=== PATIENT | male | born 1955 | race Caucasian/White ===

== ENCOUNTER → 2016-10-25 | Outpatient (CLI) | payer OTHER ==
[~2016-10-25] MED LIST: ALTACE10 MG PO; CARDURA 2MG TAB2 MG PO; CRESTOR20 MG PO; ECOTRIN81 MG PO; EFFER-K 10 MEQ10 MEQ PO; GLUCOPHAGE1000 MG PO; HYDROCHLOROTHIA25 MG PO; LORTAB 5-325 M1 EACH PO; NEXIUM40 MG PO; NORVASC 5 MG TAB5 MG PO; PLAVIX 75 MG TA75 MG PO; PROAIR HFA8.5 GM INH; TOPROL XL 50 MG50 MG PO; VISTARIL25 MG PO; ZOLOFT50 MG PO
[2016-10-25 13:03] LABS: HEMOGLOBIN 14.1 gm/dl (14.0-17.5); RED BLOOD COUNT 4.39 M/UL (4.20-5.50); WHITE BLOOD COUNT 5.7 K/UL (4.5-11.0)
[2016-10-25 13:29] LABS: BUN/CREATININE RATIO 23 (0-10)
== END ==
LOC: LAB 12:20
PROVIDERS: Nurse Practitioner
DX: E11.9 Type 2 diabetes mellitus without complications (principal); E78.5 Hyperlipidemia, unspecified; I10 Essential (primary) hypertension
CPT/HCPCS: 36415; 80053; 80061; 82043; 83036; 84436; 84443; 84480; 85025

== ENCOUNTER 2020-08-22 17:43 | Emergency (ER) | payer OTHER ==
[~2020-08-22] VITALS: Ht 177.8 cm; Wt 122.5 kg
[2020-08-22 19:00] LABS: HEMOGLOBIN 14.3 gm/dl (14.0-17.5); RED BLOOD COUNT 4.34 M/UL (4.20-5.50); WHITE BLOOD COUNT 5.5 K/UL (4.5-11.0)
[2020-08-22 19:11] LABS: BUN/CREATININE RATIO 15 (0-10)
[2020-08-22] MEDS ORDERED: VENTOLIN HFA 66.7 GM INH (21:24)
== END 2020-08-22 20:30 | disposition home or self-care (01) ==
LOC: ER1 17:43
PROVIDERS: Physician Assistant
DX: U07.1 COVID-19 (principal); I25.10 Atherosclerotic heart disease of native coronary artery without angina pectoris; I25.2 Old myocardial infarction; E11.9 Type 2 diabetes mellitus without complications; F17.210 Nicotine dependence, cigarettes, uncomplicated; Z88.0 Allergy status to penicillin; Z88.1 Allergy status to other antibiotic agents; Z96.643 Presence of artificial hip joint, bilateral
CPT/HCPCS: 71045; 80053; 85025; 99285; M0239

== ENCOUNTER → 2020-10-30 | Outpatient (CLI) | payer OTHER ==
[~2020-10-30] MED LIST changes: +VENTOLIN HFA 66.7 GM INH
[2020-10-30 15:56] LABS: HEMOGLOBIN 14.1 gm/dl (14.0-17.5); RED BLOOD COUNT 4.5 M/UL (4.20-5.50); WHITE BLOOD COUNT 6.3 K/UL (4.5-11.0)
[2020-10-30 16:13] LABS: BUN/CREATININE RATIO 12 (0-10)
[2020-10-31 08:14] LABS: THYROXINE (T4) 6.1 ug/dL (4.5-12.0)
[2020-10-31 10:14] LABS: CREATININE, URINE 103.4 mg/dL (Not Estab.)
[2020-10-31 11:14] LABS: VITAMIN D, 25-HYDROXY 31.7 ng/mL (30.0-100.0)
== END ==
LOC: LAB 15:06
PROVIDERS: Nurse Practitioner
DX: E11.9 Type 2 diabetes mellitus without complications (principal); I10 Essential (primary) hypertension; E78.5 Hyperlipidemia, unspecified; Z86.16 Personal history of COVID-19
CPT/HCPCS: 36415; 71046; 80053; 80061; 82043; 82570; 83036; 84436; 84443; 84480; 85025

== ENCOUNTER → 2021-02-14 | Outpatient (CLI) | payer OTHER ==
[2021-02-14 12:28] LABS: HEMOGLOBIN 14.2 gm/dl (14.0-17.5); RED BLOOD COUNT 4.49 M/UL (4.20-5.50); WHITE BLOOD COUNT 5.4 K/UL (4.5-11.0)
[2021-02-14 12:35] LABS: BUN/CREATININE RATIO 12 (0-10)
[2021-02-15 08:14] LABS: THYROXINE (T4) 6.5 ug/dL (4.5-12.0); VITAMIN D, 25-HYDROXY 33.1 ng/mL (30.0-100.0)
== END ==
LOC: LAB 11:06
PROVIDERS: Nurse Practitioner
DX: S83.91XA Sprain of unspecified site of right knee, initial encounter (principal); M54.5 Low back pain; E11.9 Type 2 diabetes mellitus without complications; I11.9 Hypertensive heart disease without heart failure; Z96.643 Presence of artificial hip joint, bilateral; M25.559 Pain in unspecified hip; E78.5 Hyperlipidemia, unspecified; R53.83 Other fatigue; M25.561 Pain in right knee; Z12.5 Encounter for screening for malignant neoplasm of prostate; E55.9 Vitamin D deficiency, unspecified; V92.09XA Drowning and submersion due to fall off unspecified watercraft, initial encounter; M17.11 Unilateral primary osteoarthritis, right knee; M25.461 Effusion, right knee
CPT/HCPCS: 36415; 73562; 80053; 80061; 81001; 83036; 84436; 84443; 84480; 85025; G0103

== ENCOUNTER → 2021-07-09 | Outpatient (CLI) | payer OTHER ==
[2021-07-09 16:21] LABS: RED BLOOD COUNT 4.43 M/UL (4.20-5.50); WHITE BLOOD COUNT 7.2 K/UL (4.5-11.0)
[2021-07-10 07:10] LABS: A/G RATIO 2.2 (1.2-2.2); ALKALINE PHOSPHATASE, S 71 IU/L (44-121); ALT (SGPT) 16 IU/L (0-44); AST (SGOT) 12 IU/L (0-40); BILIRUBIN, TOTAL 0.5 mg/dL (0.0-1.2); BUN 12 mg/dL (8-27); BUN/CREATININE RATIO 13 (10-24); CALCIUM, SERUM 8.9 mg/dL (8.6-10.2); CARBON DIOXIDE, TOTAL 25 mmol/L (20-29); CHLORIDE, SERUM 103 mmol/L (96-106); CHOLESTEROL, TOTAL 147 mg/dL (100-199); EGFR IF AFRICN AM 104 (>59); EGFR IF NONAFRICN AM 90 (>59); ESTIM. AVG GLU (EAG) 174 mg/dL (.); GLUCOSE, SERUM 139 mg/dL (65-99); HDL CHOLESTEROL 46 mg/dL (>39); HEMOGLOBIN A1C 7.7 % (4.8-5.6); LDL CHOLESTEROL CALC 82 mg/dL (0-99); LDL/HDL RATIO 1.8 ratio (0.0-3.6); POTASSIUM, SERUM 4.3 mmol/L (3.5-5.2); PROTEIN, TOTAL, SERUM 6.3 g/dL (6.0-8.5); SODIUM, SERUM 141 mmol/L (134-144); T. CHOL/HDL RATIO 3.2 ratio (0.0-5.0); TRIGLYCERIDES 104 mg/dL (0-149)
[2021-07-10 08:13] LABS: THYROXINE (T4) 6.8 ug/dL (4.5-12.0); TRIIODOTHYRONINE (T3) 106 ng/dL (71-180); VITAMIN D, 25-HYDROXY 33.7 ng/mL (30.0-100.0)
== END ==
LOC: LAB 13:07
PROVIDERS: Nurse Practitioner Family
DX: J06.9 Acute upper respiratory infection, unspecified (principal); M25.559 Pain in unspecified hip; S83.91XD Sprain of unspecified site of right knee, subsequent encounter; I11.9 Hypertensive heart disease without heart failure; E11.9 Type 2 diabetes mellitus without complications; E78.5 Hyperlipidemia, unspecified; R53.83 Other fatigue
CPT/HCPCS: 36415; 71046; 80053; 80061; 81001; 83036; 84436; 84443; 84480; 85025